=== PATIENT | female | born 1960 | race African-American/Black ===

== ENCOUNTER 2020-02-14 17:27 | Emergency (ER) | payer MEDICARE, MEDICAID ==
[~2020-02-14] VITALS: Ht 160 cm; Wt 64.0 kg
[2020-02-14] MEDS ORDERED: CLONIDINE 0.2MG TABLET PO ONE (18:15)
[2020-02-14 18:34] LABS: BASOPHILS % 0.6 % (0.0-2.0); EOSINOPHILS % 1.2 % (0.0-5.0); HEMATOCRIT. 39.7 % (36.0-48.0); HEMOGLOBIN. 12.6 g/dL (12.0-16.0); LYMPHOCYTES % 26.1 % (20.0-50.0); MEAN CORPUSCULAR HEMOGLOBIN 29.7 pg (28.0-32.0); MEAN CORPUSCULAR VOLUME 93.8 fL (81.0-99.0); NEUTROPHILS % 65.1 % (40.0-76.0); PLATELET 216 x1000/uL (130-400); RED BLOOD CELL COUNT 4.24 mill/uL (4.2-5.4); RED CELL DISTRIBUTION WIDTH 14.9 % (11.6-14.6)
[2020-02-14 18:40] LABS: CHLORIDE 103 mEq/L (98-107)
[2020-02-14 19:58] VITALS: BP 151/87
== END 2020-02-14 20:30 | disposition left against medical advice (07) ==
LOC: ER 17:27
DX: I10 Essential (primary) hypertension (principal); E16.2 Hypoglycemia, unspecified
CPT/HCPCS: 36415; 71045; 80053; 82962; 85025; 93005; 99285

== ENCOUNTER 2024-10-31 12:21 | Emergency (ER) | payer MEDICAID, MEDICARE ==
[~2024-10-31] VITALS: Ht 160 cm; Wt 66.0 kg
[2024-10-31 12:32] VITALS: O2SAT 99
[2024-10-31 12:40] VITALS: BP 131/84; PULSE 88; RESP 14; TEMP 36.8; O2SAT 100
[2024-10-31] MEDS: GABAPENTIN 300MG CAPSULE PO ONE (18:51)
[2024-10-31] MEDS: GABAPENTIN 100MG CAPSULE PO SCH (18:51)
[2024-10-31] MEDS: ACETAMINOPHEN 325MG TABLET PO ONE (18:51)
[2024-10-31 19:05] LABS: CLARITY URINE CLOUDY (CLEAR); COLOR URINE YELLOW (YELLOW); GLUCOSE URINE NEGATIVE (NEGATIVE); KETONES URINE TRACE (NEGATIVE); LEUKOCYTE ESTERASE URINE 2+ (NEGATIVE); NITRITE URINE NEGATIVE (NEGATIVE); OCCULT BLOOD URINE TRACE (NEGATIVE); PH URINE 6.0 (4.5-8.0); PROTEIN URINE 1+ (NEGATIVE); SPECIFIC GRAVITY URINE 1.019 (1.005-1.030); UROBILINOGEN URINE 0.2 E.U./dL (0.2-1.0)
[2024-10-31 19:23] LABS: SQUAMOUS EPITHELIAL CELL URINE 1+ /lpf (RARE/1+)
[2024-10-31 19:24] LABS: BACTERIA URINE 2+
[2024-10-31 19:47] LABS: BASOPHILS % 0.4 % (0.0-2.0); EOSINOPHILS % 1.9 % (0.0-5.0); HEMATOCRIT. 35.1 % (36.0-48.0); HEMOGLOBIN. 11.1 g/dL (12.0-16.0); LYMPHOCYTES % 36.2 % (20.0-50.0); MEAN PLATELET VOLUME 8.8 fl (7.4-10.4); MONOCYTES % 6.4 % (2.0-8.0); NEUTROPHILS % 55.1 % (40.0-76.0); PLATELET 231 x1000/uL (130-400); RED BLOOD CELL COUNT 4.11 mill/uL (4.2-5.4); RED CELL DISTRIBUTION WIDTH 14.7 % (11.6-14.6)
[2024-10-31 20:02] LABS: CREATININE 1.8 mg/dL (0.6-1.0)
[2024-10-31 20:03] LABS: UREA NITROGEN BLOOD 17 mg/dL (9-23)
[2024-10-31 20:04] LABS: ASPARTATE AMINOTRANSFERASE 14 IU/L (<34)
[2024-10-31 20:05] LABS: BILIRUBIN DIRECT < 0.1 mg/dL (<=3.0); BILIRUBIN TOTAL 0.3 mg/dL (0.1-1.0); PROTEIN TOTAL 7.3 g/dL (6.0-8.3)
[2024-10-31] MEDS ORDERED: ACET-2708 MT (20:20)
[2024-10-31] MEDS ORDERED: CEFP100T8 MT (20:20)
[2024-10-31] MEDS ORDERED: GABA-529 MT (20:20)
== END 2024-10-31 20:46 | disposition home or self-care (01) ==
LOC: ER 12:21
DX: M79.672 Pain in left foot (principal); M79.671 Pain in right foot; R53.1 Weakness
CPT/HCPCS: 36415; 73620; 80048; 80076; 81003; 85025; 99284